=== PATIENT | female | born 1955 | race African-American/Black ===

== ENCOUNTER 2020-03-20 12:08 | Outpatient (CLI) | payer MEDICARE, SELFPAY ==
--- NOTE | ~2020-03-20 | XR_ITS ---
EXAMINATION: XR knee LT 3V DATE: 03/20/2020 13:09 INDICATION: Left knee osteoarthritis. TECHNIQUE: 3 views of left knee were obtained. COMPARISON: None. FINDINGS: There is varus angulation at the knee. No fracture. There is severe tricompartmental osteoa rthritis. There is a small knee joint effusion. IMPRESSION: 1. Severe left knee osteoarthritis. 2. Small left knee joint effusion. Reviewed, dictated and finalized at location B. [employer]
--- NOTE | ~2020-03-20 | XR_ITS ---
EXAMINATION: XR knee RT 3V DATE: 03/20/2020 13:09 INDICATION: Right knee osteoarthritis. TECHNIQUE: 3 views of right knee were obtained. COMPARISON: None. FINDINGS: There is varus angulation at the knee. No fracture. There is severe tricompartmental osteoa rthritis. There is a small knee joint effusion. IMPRESSION: 1. Severe right knee osteoarthritis. 2. Small right knee joint effusion. Reviewed, dictated and finalized at location B. [employer]
== END 2020-03-20 12:09 ==
PROVIDERS: Visit Provider Nurse Practitioner Adult Health
DX: M17.0 Bilateral primary osteoarthritis of knee (principal); M25.461 Effusion, right knee; M25.462 Effusion, left knee
CPT/HCPCS: 73562